=== PATIENT | female | born 1955 | race African-American/Black ===

== ENCOUNTER 2021-06-27 18:19 | Emergency (ER) | payer OTHER ==
[~2021-06-27] VITALS: Ht 170.2 cm; Wt 76.3 kg
[2021-06-27] MEDS ORDERED: AMLODIPINE 10MG TABLET PO ONE (19:30)
[2021-06-27 21:00] VITALS: BP 173/98
== END 2021-06-28 00:23 | disposition home or self-care (01) ==
LOC: ER 18:19
DX: U07.1 COVID-19 (principal); B34.9 Viral infection, unspecified; I10 Essential (primary) hypertension; E11.9 Type 2 diabetes mellitus without complications; J45.909 Unspecified asthma, uncomplicated; Z98.890 Other specified postprocedural states
CPT/HCPCS: 71045; 87426; 93005; 99285

== ENCOUNTER 2023-10-19 11:31 | Emergency (ER) | payer MEDICARE, OTHER ==
[~2023-10-19] VITALS: Ht 170.2 cm; Wt 79.0 kg
[2023-10-19 11:33] VITALS: O2SAT 99
[2023-10-19 12:47] LABS: BASOPHILS % 0.6 % (0.0-2.0); EOSINOPHILS % 1.9 % (0.0-5.0); HEMATOCRIT. 34.9 % (36.0-48.0); LYMPHOCYTES % 31.8 % (20.0-50.0); MEAN CORPUSCULAR HEMOGLOBIN 33.6 pg (28.0-32.0); MEAN CORPUSCULAR HGB CONC 34.3 g/dL (31.0-37.0); MEAN CORPUSCULAR VOLUME 97.8 fL (81.0-99.0); MEAN PLATELET VOLUME 8.4 fl (7.4-10.4); MONOCYTES % 4.9 % (2.0-8.0); NEUTROPHILS % 60.8 % (40.0-76.0); PLATELET 187 x1000/uL (130-400); RED BLOOD CELL COUNT 3.57 mill/uL (4.2-5.4); WHITE BLOOD COUNT 3.3 x1000/uL (4.5-11.0)
[2023-10-19 12:58] LABS: CHLORIDE 103 mEq/L (98-107); POTASSIUM 5.9 mEq/L (3.5-5.1); SODIUM 134 mEq/L (136-145)
[2023-10-19 12:59] LABS: CALCIUM 9.9 mg/dL (8.7-10.4); CARBON DIOXIDE 25 mEq/L (21-32)
[2023-10-19 13:04] LABS: GLUCOSE 224 mg/dL (70-105); UREA NITROGEN BLOOD 15 mg/dL (9-23)
[2023-10-19 13:06] LABS: ALANINE AMINOTRANSFERASE 31 IU/L (10-49); ALBUMIN 4.8 g/dL (3.2-4.8); ASPARTATE AMINOTRANSFERASE 45 IU/L (<34); BILIRUBIN TOTAL 0.5 mg/dL (0.1-1.0); PROTEIN TOTAL 7.9 g/dL (6.0-8.3)
[2023-10-19 13:12] LABS: ETHANOL BLOOD < 10 mg/dL (<10); TROPONIN I HIGH SENSITIVITY < 4 ng/L (3.0-34)
[2023-10-19 13:36] LABS: PROTHROMBIN TIME 10.9 sec (9.6-11.0)
[2023-10-19] MEDS: SODIUM CHLORIDE 0.9% 1,000 ML IV ONE (13:48)
[2023-10-19] MEDS: IOHEXOL-350 100 ML BOTTLE ONE (13:48)
[2023-10-19 14:01] LABS: CLARITY URINE CLEAR (CLEAR); COLOR URINE YELLOW (YELLOW); GLUCOSE URINE 2+ (NEGATIVE); KETONES URINE NEGATIVE (NEGATIVE); LEUKOCYTE ESTERASE URINE NEGATIVE (NEGATIVE); NITRITE URINE NEGATIVE (NEGATIVE); OCCULT BLOOD URINE NEGATIVE (NEGATIVE); PH URINE 5.5 (4.5-8.0); PROTEIN URINE NEGATIVE (NEGATIVE); SPECIFIC GRAVITY URINE 1.039 (1.005-1.030); UROBILINOGEN URINE 0.2 E.U./dL (0.2-1.0)
[2023-10-19 14:13] LABS: CHLORIDE 105 mEq/L (98-107); POTASSIUM 3.9 mEq/L (3.5-5.1); SODIUM 139 mEq/L (136-145)
[2023-10-19 14:14] LABS: CARBON DIOXIDE 29 mEq/L (21-32)
[2023-10-19 14:17] LABS: BACTERIA URINE TRACE; RBC URINE 0-2 /hpf (0-2); SQUAMOUS EPITHELIAL CELL URINE 1+ /lpf (RARE/1+); WBC URINE 0-2 /hpf (0-2); YEAST URINE NONE SEEN
[2023-10-19 14:19] LABS: CREATININE 0.8 mg/dL (0.6-1.0); GLUCOSE 159 mg/dL (70-105); UREA NITROGEN BLOOD 15 mg/dL (9-23)
[2023-10-19 14:32] LABS: *AMPHETAMINES SCREEN URINE NEGATIVE (NEGATIVE); *BARBITURATES SCREEN URINE NEGATIVE (NEGATIVE); *BENZODIAZEPINES SCREEN URINE NEGATIVE (NEGATIVE); *COCAINE SCREEN URINE NEGATIVE (NEGATIVE)
[2023-10-19 14:33] LABS: CANNABINOID URINE SCREEN NEGATIVE (NEGATIVE); ECSTASY MDMA SCREEN URINE NEGATIVE (NEGATIVE); METHADONE URINE SCREEN NEGATIVE (NEGATIVE); OPIATES URINE SCREEN NEGATIVE (NEGATIVE); PHENCYCLIDINE URINE SCREEN NEGATIVE (NEGATIVE)
[2023-10-19 14:57] LABS: CALCIUM 9.7 mg/dL (8.7-10.4)
[2023-10-19] MEDS: GADOTERATE MEGLUMINE 5 MMOL/10 ML VIAL IV ONE (17:12)
[2023-10-19 17:30] VITALS: BP 128/73; PULSE 74; RESP 15; TEMP 98.6
== END 2023-10-19 22:31 | disposition home or self-care (01) ==
LOC: ER 11:31 → EDBEDREQSVC 15:22 → EDBEDREQ 15:22 → ER 22:31 → CANBEDREQ 22:50
DX: R41.0 Disorientation, unspecified (principal); R55 Syncope and collapse; E11.65 Type 2 diabetes mellitus with hyperglycemia; J45.909 Unspecified asthma, uncomplicated; I10 Essential (primary) hypertension
CPT/HCPCS: 80053; 80305; 80048; 81003; 80320; 85025; 85610; 84484; 36415; 71045; 70496; 70498; 70450; 70553; 93005; 96360; 99291; A9577; Q9967; G0480

== ENCOUNTER 2024-01-14 14:25 | Emergency (ER) | payer MEDICARE ==
[~2024-01-14] VITALS: Ht 170.2 cm; Wt 81.6 kg
[2024-01-14 14:28] VITALS: BP 142/76; RESP 16; TEMP 98.3
[2024-01-14 14:33] VITALS: PULSE 98
[2024-01-14] MEDS ORDERED: NAPR-677 MT (15:08)
[2024-01-14] MEDS ORDERED: ACET10DR3 RIGHT EAR (15:08)
[2024-01-14] MEDS ORDERED: CEPH500C2 MT (15:08)
== END 2024-01-14 15:19 | disposition home or self-care (01) ==
LOC: ER 14:25
DX: H66.91 Otitis media, unspecified, right ear (principal); I10 Essential (primary) hypertension; E11.9 Type 2 diabetes mellitus without complications; J45.909 Unspecified asthma, uncomplicated; Z90.710 Acquired absence of both cervix and uterus
CPT/HCPCS: 99282

== ENCOUNTER 2024-08-22 01:02 | Emergency (ER) | payer MEDICARE ==
[~2024-08-22] VITALS: Ht 170.2 cm; Wt 79.3 kg
[~2024-08-22 01:02] MED LIST: ACET10DR3 RIGHT EAR; CEPH500C2 MT; NAPR-677 MT
[2024-08-22 01:18] VITALS: O2SAT 99
[2024-08-22 01:28] VITALS: BP 173/103; PULSE 82; RESP 17; TEMP 36.6; O2SAT 99
[2024-08-22] MEDS ORDERED: IBUP-2029 MT (02:54)
[2024-08-22] MEDS: IBUPROFEN 600MG TABLET PO ONE (03:03)
== END 2024-08-22 03:29 | disposition home or self-care (01) ==
LOC: ER 01:02
DX: H92.02 Otalgia, left ear (principal); E11.9 Type 2 diabetes mellitus without complications; Z79.1 Long term (current) use of non-steroidal anti-inflammatories (NSAID); Z90.710 Acquired absence of both cervix and uterus
CPT/HCPCS: 99281